=== PATIENT | male | born 2000 | race Caucasian/White ===

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

== ENCOUNTER 2020-03-16 14:24 | Emergency (ER) | payer OTHER ==
--- NOTE | 2020-03-16 14:28 | NUR ---
NO ANSWER FOR TRIAGE AT THIS TIME; PATIENT NOT IN THE LOBBY, RESTROM, OR OUTSIDE.
--- NOTE | 2020-03-16 14:38 | NUR ---
SECOND CALL, NO ANSWER FOR TRIAGE. PATIENT NOT FOUND IN LOBBY, RESTROOM, OR OUTSIDE
--- NOTE | 2020-03-16 14:45 | NUR ---
THIRD CALL - NO ANSWER FOR TRIAGE. PATIENT NOT FOUND IN LOBBY, OUTSIDE, OR IN RESTROOM
== END 2020-03-16 14:28 | disposition left against medical advice (07) ==
LOC: ER 14:24
DX: M54.9 Dorsalgia, unspecified (principal)

== ENCOUNTER 2020-05-16 04:52 | Emergency (ER) | payer SELFPAY ==
[~2020-05-16] VITALS: Ht 182.9 cm; Wt 77.1 kg
--- NOTE | 2020-05-16 05:22 | Emergency Department Note ---
History of Present Illnes History of Present Illness Chief Complaint: Headache History of Present Illness This is a 20 year old male PRESENTS TO THE ER C/O FRONTAL HEADACHE ONSET LAST NIGHT AROUND 2200; PT STATES HE WENT TO SLEEP AND WOKE UP WITH WORSENING HEADACHE; PT ALSO REPORTS RUNNY NOSE ONSET YESTERDAY. STATE PAIN IS WORSE WHEN HE BENDS OVER . Historian: Patient Arrival Mode: Car Onset (how long ago): day(s) (1) Location: HEAD Quality: HEADACHE, CONGESTION, RUNNY NOSE Radiation: Reports non-radiation Severity: moderate Onset quality: gradual Duration (how long): day(s) (1) Timing of current episode: constant Progression: worsening Context: Denies recent illness, Denies recent surgery Relieving factors: none Exacerbating factors: other (BENDING OVER) Associated symptoms: Reports denies other symptoms Treatments prior to arrival: NSAID, antipyretic Past Medical/Family History Physician Review I have reviewed the patient's past medical and family history. Any updates have been documented here. Past Medical History Recent Fever: No Clinical Suspicion of Infectio: No New/Unexplained Change in Ment: No Past Medical History: None Other Medical History: SEASONAL ALLERGIES Past Surgical History: None Other Surgery: EAR TUBES Social History Smoking Cessation: Current every day smoker Alcohol Use: Occasional Any Illegal Drug Use: Yes (MARIJAUNA) Physically hurt or threatened: No Family History Family history of heart diseas: No Other Last Tetanus: UTD Review of Systems Review of Systems Constitutional: Reports no symptoms EENTM: Reports no symptoms Cardiovascular: Reports no symptoms Respiratory: Reports no symptoms Gastrointestinal: Reports no symptoms Genitourinary: Reports no symptoms Musculoskeletal: Reports no symptoms Integumentary: Reports no symptoms Neurological: Reports as per HPI Psychological: Reports no symptoms Endocrine: Reports no symptoms Hematological/Lymphatic: Reports no symptoms Physical Exam Related Data Allergies: Coded Allergies: morphine (Verified Allergy, Intermediate, 07/29/19) Triage Vital Signs Vital Signs Date Time Temp Pulse Resp B/P (MAP) Pulse Ox O2 Delivery O2 Flow Rate FiO2 05/16/20 05:11 97.7 56 18 143/89 100 Room Air Vital signs reviewed: Yes Physical Exam CONSTITUTIONAL Constitutional: Present well-developed, Present well-nourished HENT HENT: Present normocephalic, Present atraumatic, Present oropharynx clear/moist, Present nasal discharge (MODERATE), Present nasal congestion (SWOLLEN NASAL TURBINATES), Present other (TENDERNESS OVER FRONTAL SINUSES ) HENT L/R: Present left ext ear normal, Present right ext ear normal EYES Eyes: Reports PERRL, Reports conjunctivae normal NECK Neck: Present ROM normal PULMONARY Pulmonary: Present effort normal, Present breath sounds normal CARDIOVASCULAR Cardiovascular: Present regular rhythm, Present heart sounds normal, Present capillary refill normal, Present normal rate GASTROINTESTINAL Abdominal: Present soft, Present nontender, Present bowel sounds normal GENITOURINARY Genitourinary: Present exam deferred SKIN Skin: Present warm, Present dry MUSCULOSKELETAL Musculoskeletal: Present ROM normal NEUROLOGICAL Neurological: Present alert, Present oriented x 3, Present no gross motor or sensory deficits PSYCHOLOGICAL Psychological: Present mood/affect normal, Present judgement normal Assessment & Plan Medical Decision Making MDM PT WITH FRONTAL HEADACHE WITH TENDERNESS OVER FRONTAL SINUSES. PT DIAGNOSED WITH SINUS HEADACHE. DISCHARGED WITH FOLLOWING PRESCRIPTIONS AUGMENT 875 ONE PO BID FOR 14 DAYS MEDROL DOSE PACK Assessment & Plan Final Impression: (1) Sinus headache (2) Sinusitis Depart Disposition: HOME, SELF-CARE Last Vital Signs Date Time Temp Pulse Resp B/P (MAP) Pulse Ox O2 Delivery O2 Flow Rate FiO2 05/16/20 05:11 97.7 56 18 143/89 100 Room Air SJ SKINNER MD May 16, 2020 05:22
== END 2020-05-16 05:20 | disposition home or self-care (01) ==
LOC: ER 05:20
DX: J32.9 Chronic sinusitis, unspecified (principal); R51 Headache; F17.210 Nicotine dependence, cigarettes, uncomplicated
CPT/HCPCS: 99282

== ENCOUNTER 2021-02-09 21:11 | Inpatient (IN) | payer OTHER ==
[~2021-02-09] VITALS: Ht 182.9 cm; Wt 88.0 kg
[2021-02-09] MEDS ORDERED: VANCOMYCIN 1GM/NS 250 ML 250 ML IV STA (21:23)
[2021-02-09] MEDS ORDERED: CEFEPIME 1 GM in SODIUM CHLORIDE 0.9% 50ML 50 ML IV STA (21:30)
[2021-02-09 21:38] LABS: BASOPHILS # (AUTO) 0.1 (0.0-0.1); BASOPHILS % 0.5 % (0.0-1.0); EOSINOPHILS # (AUTO) 0.7 (0.0-0.4); EOSINOPHILS % 5.6 % (0.0-6.0); HEMATOCRIT 36.3 % (38.2-49.6); HEMOGLOBIN 11.7 g/dL (14.0-18.0); LYMPHOCYTES # (AUTO) 2.9 (1.0-3.2); LYMPHOCYTES % 24.7 % (18.0-39.1); MEAN CORPUSCULAR HEMOGLOBIN 29.7 pg (28-32); MEAN CORPUSCULAR HGB CONC 32.2 g/dL (31-35); MEAN CORPUSCULAR VOLUME 92.1 fL (81-99); MONOCYTES # (AUTO) 1.1 (0.2-0.8); MONOCYTES % 9.6 % (4.4-11.3); NEUTROPHILS # (AUTO) 6.9 (2.1-6.9); PLATELET COUNT 362 x10e3/uL (140-360); RED BLOOD COUNT 3.94 x10e6/uL (4.3-5.7); RED CELL DISTRIBUTION WIDTH 13.2 % (11.7-14.4)
[2021-02-09 21:55] LABS: ALANINE AMINOTRANSFERASE 32 IU/L (0-55); ALBUMIN 3.7 g/dL (3.5-5.0); ALBUMIN/GLOBULIN RATIO 1.1 (0.8-2.0); ALKALINE PHOSPHATASE 94 IU/L (40-150); ANION GAP 14.1 mmol/L (8-16); BLOOD UREA NITROGEN 14 mg/dL (7-26); BUN/CREATININE RATIO 17 (6-25); CARBON DIOXIDE 29 mmol/L (22-29); CHLORIDE 103 mmol/L (98-107); CREATININE, SERUM 0.81 mg/dL (0.72-1.25); EST GLOMERULAR FILTRATION RATE > 60 ML/MIN (60-); GLUCOSE 101 mg/dL (74-118); POTASSIUM 4.1 mmol/L (3.5-5.1); SODIUM 142 mmol/L (136-145)
[2021-02-09] MEDS ORDERED: SODIUM CHLORIDE 0.9% 1000ML 1,000 ML IV ONE (22:00)
[2021-02-10] VITALS (9 sets, daily range): BP systolic 115–138; BP diastolic 65–76
[2021-02-10] MEDS ORDERED: ALPRAZOLAM2 MG PO (04:46)
[2021-02-10] MEDS ORDERED: PAROXETINE HCL10 MG PO (04:46)
[2021-02-10 05:02] LABS: AMPHETAMINES SCREEN,URINE NEGATIVE (NEGATIVE); BENZODIAZEPINES SCREEN,URINE POSITIVE (NEGATIVE); PHENCYCLIDINE SCREEN,URINE NEGATIVE (NEGATIVE)
[2021-02-10] MEDS ORDERED: CEFEPIME 1 GM in SODIUM CHLORIDE 0.9% 50ML 50 ML IV SCH (08:00)
[2021-02-10] MEDS: NICOTINE 21 MG/EA PATCH TOP SCH (08:32)
[2021-02-10] MEDS: PIPERACILLIN/TAZOBACTAM 3.375 GM in SODIUM CHLORIDE 0.9% 50ML 50 ML IV SCH ×3 (09:00→22:58)
[2021-02-10] MEDS ORDERED: PIPERACILLIN/TAZOBACTAM 3.375 GM VIAL ONE (09:21)
[2021-02-10] MEDS: VANCOMYCIN 1GM/NS 250 ML 250 ML IV SCH ×2 (10:33→22:30)
[2021-02-10 11:25] LABS: BASOPHILS # (AUTO) 0.1 (0.0-0.1); BASOPHILS % 0.4 % (0.0-1.0); EOSINOPHILS # (AUTO) 0.5 (0.0-0.4); EOSINOPHILS % 4.1 % (0.0-6.0); HEMATOCRIT 32.4 % (38.2-49.6); HEMOGLOBIN 10.7 g/dL (14.0-18.0); LYMPHOCYTES % 17.4 % (18.0-39.1); MEAN CORPUSCULAR HEMOGLOBIN 29.8 pg (28-32); MEAN CORPUSCULAR VOLUME 90.3 fL (81-99); MONOCYTES # (AUTO) 0.7 (0.2-0.8); MONOCYTES % 6.4 % (4.4-11.3); NEUTROPHILS # (AUTO) 8.1 (2.1-6.9); NEUTROPHILS % 71.2 % (38.7-80.0); PLATELET COUNT 319 x10e3/uL (140-360); RED BLOOD COUNT 3.59 x10e6/uL (4.3-5.7)
[2021-02-10] MEDS: MORPHINE SULFATE INJ 2 MG/ML SYR IV PRN ×3 (11:25→23:25)
[2021-02-10] MEDS ORDERED: ACETAMINOPHEN 325 MG TAB PO PRN (11:30)
[2021-02-10] MEDS ORDERED: ONDANSETRON HCL INJ 2MG/ML 2ML 2 MG/ML VIAL IV PRN (11:30)
[2021-02-10 11:53] LABS: ALANINE AMINOTRANSFERASE 33 IU/L (0-55); ALBUMIN 3.2 g/dL (3.5-5.0); ALKALINE PHOSPHATASE 86 IU/L (40-150); ANION GAP 12.8 mmol/L (8-16); BLOOD UREA NITROGEN 10 mg/dL (7-26); BUN/CREATININE RATIO 13 (6-25); CALCIUM 8.6 mg/dL (8.4-10.2); CARBON DIOXIDE 27 mmol/L (22-29); CHLORIDE 104 mmol/L (98-107); CREATININE, SERUM 0.75 mg/dL (0.72-1.25); EST GLOMERULAR FILTRATION RATE > 60 ML/MIN (60-); GLUCOSE 132 mg/dL (74-118); POTASSIUM 3.8 mmol/L (3.5-5.1); SODIUM 140 mmol/L (136-145)
[2021-02-10] MEDS ORDERED: SODIUM CHLORIDE 0.9% 100 ML ONE (22:44)
[2021-02-11] VITALS: BP 121/59
[2021-02-11] MEDS: PIPERACILLIN/TAZOBACTAM 3.375 GM in SODIUM CHLORIDE 0.9% 50ML 50 ML IV SCH ×2 (06:03→10:54)
[2021-02-11] MEDS: NICOTINE 21 MG/EA PATCH TOP SCH (06:39)
[2021-02-11] MEDS: MORPHINE SULFATE INJ 2 MG/ML SYR IV PRN ×2 (06:46→13:13)
[2021-02-11 07:50] VITALS: BP 135/69
[2021-02-11] MEDS ORDERED: SODIUM CHLORIDE 0.9% 250ML 250 ML ONE (08:24)
[2021-02-11] MEDS: VANCOMYCIN 1GM/NS 250 ML 250 ML IV SCH (08:35)
[2021-02-11 08:49] VITALS: BP 135/69
[2021-02-11] MEDS ORDERED: DIPHENHYDRAMINE HCL 25 MG CAP PO PRN (11:45)
[2021-02-11 11:52] VITALS: BP 137/81
[2021-02-11] MEDS ORDERED: doxycline PO (14:55)
== END 2021-02-11 16:44 | disposition home or self-care (01) | DRG 563 ==
LOC: ER 21:24 → ERHOLD 02-10 → MED/SURG2 02-10 00:31 → OBSVTOIN 02-11 13:48
PROVIDERS: ADMIT Internal Medicine; ATTEND Internal Medicine
DX: S82.002B Unspecified fracture of left patella, initial encounter for open fracture type I or II (principal); L03.116 Cellulitis of left lower limb; F11.20 Opioid dependence, uncomplicated; V29.9XXA Motorcycle rider (driver) (passenger) injured in unspecified traffic accident, initial encounter; B96.89 Other specified bacterial agents as the cause of diseases classified elsewhere; Z20.822 Contact with and (suspected) exposure to COVID-19; F17.210 Nicotine dependence, cigarettes, uncomplicated
CPT/HCPCS: 36415; 80053; 80307; 83605; 85025; 87040; 87071; 87186; 87205; 97139; 99284; G0378; J0692; J2270; J2543; J3370; J7030; J7050; U0002

== ENCOUNTER → 2021-02-15 | Outpatient (CLI) | payer OTHER ==
[~2021-02-15] MED LIST: ALPRAZOLAM2 MG PO; PAROXETINE HCL10 MG PO; doxycline PO
== END ==
LOC: WCC 15:50
PROVIDERS: ATTEND Internal Medicine Infectious Disease
DX: S81.002A Unspecified open wound, left knee, initial encounter (principal); Y92.415 Exit ramp or entrance ramp of street or highway as the place of occurrence of the external cause

== ENCOUNTER → 2021-02-22 | Outpatient (CLI) | payer OTHER | LOC: WCC 15:47 | PROVIDERS: ATTEND Internal Medicine Infectious Disease | DX: S81.002A Unspecified open wound, left knee, initial encounter (principal); Y92.415 Exit ramp or entrance ramp of street or highway as the place of occurrence of the external cause ==

== ENCOUNTER → 2021-03-01 | Outpatient (CLI) | payer OTHER | LOC: WCC 15:04 | PROVIDERS: ATTEND Internal Medicine Infectious Disease | DX: S81.002A Unspecified open wound, left knee, initial encounter (principal); Y92.415 Exit ramp or entrance ramp of street or highway as the place of occurrence of the external cause ==

== ENCOUNTER → 2021-03-08 | Outpatient (CLI) | payer OTHER | LOC: WCC 14:00 | PROVIDERS: ATTEND Internal Medicine Infectious Disease | DX: S81.002A Unspecified open wound, left knee, initial encounter (principal); Y92.415 Exit ramp or entrance ramp of street or highway as the place of occurrence of the external cause ==

== ENCOUNTER → 2021-03-15 | Outpatient (CLI) | payer OTHER ==
[~2021-03-15] MED LIST changes: +LIDOCAINE VISC 2% SOLN 15 ML UDC ONE
== END ==
LOC: WCC 15:25
PROVIDERS: ATTEND Internal Medicine Infectious Disease
DX: S81.002A Unspecified open wound, left knee, initial encounter (principal); Y92.415 Exit ramp or entrance ramp of street or highway as the place of occurrence of the external cause

== ENCOUNTER 2021-04-26 23:15 | Emergency (ER) | payer OTHER ==
[~2021-04-26] VITALS: Ht 182.9 cm; Wt 88.0 kg
[~2021-04-26 23:15] MED LIST changes: -LIDOCAINE VISC 2% SOLN 15 ML UDC ONE
[2021-04-26] MEDS ORDERED: CLINDAMYCIN HC150 MG PO (23:58)
[2021-04-27] MEDS ORDERED: PREDNISONE20 MG PO (00:24)
[2021-04-27] MEDS ORDERED: CLINDAMYCIN HC150 MG PO (00:24)
== END 2021-04-27 00:25 | disposition home or self-care (01) ==
LOC: ER 04-27 00:13
DX: Z48.00 Encounter for change or removal of nonsurgical wound dressing (principal); F17.210 Nicotine dependence, cigarettes, uncomplicated
CPT/HCPCS: 99282

== ENCOUNTER 2021-05-01 12:56 | Emergency (ER) | payer OTHER ==
[~2021-05-01] VITALS: Ht 182.9 cm; Wt 88.0 kg
[~2021-05-01 12:56] MED LIST changes: +CLINDAMYCIN HC150 MG PO; +PREDNISONE20 MG PO
[2021-05-01] MEDS ORDERED: HYDROCODON-ACE1 EAC9 (13:20)
[2021-05-01] MEDS ORDERED: TIZANIDINE HCL4 MG (13:20)
[2021-05-01 14:16] LABS: BASOPHILS # (AUTO) 0.1 (0.0-0.1); BASOPHILS % 0.6 % (0.0-1.0); EOSINOPHILS # (AUTO) 0.4 (0.0-0.4); EOSINOPHILS % 5.2 % (0.0-6.0); HEMATOCRIT 36.3 % (38.2-49.6); HEMOGLOBIN 11.7 g/dL (14.0-18.0); LYMPHOCYTES # (AUTO) 2.3 (1.0-3.2); LYMPHOCYTES % 27.8 % (18.0-39.1); MEAN CORPUSCULAR HEMOGLOBIN 29.2 pg (28-32); MEAN CORPUSCULAR HGB CONC 32.2 g/dL (31-35); MEAN CORPUSCULAR VOLUME 90.5 fL (81-99); MONOCYTES # (AUTO) 0.8 (0.2-0.8); MONOCYTES % 9.3 % (4.4-11.3); NEUTROPHILS # (AUTO) 4.8 (2.1-6.9); NEUTROPHILS % 56.6 % (38.7-80.0); PLATELET COUNT 233 x10e3/uL (140-360); RED BLOOD COUNT 4.01 x10e6/uL (4.3-5.7); RED CELL DISTRIBUTION WIDTH 13.8 % (11.7-14.4)
[2021-05-01 14:26] LABS: AMPHETAMINES SCREEN,URINE NEGATIVE (NEGATIVE); BENZODIAZEPINES SCREEN,URINE POSITIVE (NEGATIVE); PHENCYCLIDINE SCREEN,URINE NEGATIVE (NEGATIVE)
[2021-05-01 14:27] LABS: CLARITY,URINE CLEAR (CLEAR); COLOR,URINE YELLOW (YELLOW); KETONES,URINE NEGATIVE (NEGATIVE); LEUKOCYTE ESTERASE ,URINE NEGATIVE (NEGATIVE); NITRITE,URINE NEGATIVE (NEGATIVE); PROTEIN,URINE DIPSTICK NEGATIVE (NEGATIVE); URINE UROBILINOGEN 0.2 mg/dL (0.2 - 1)
[2021-05-01 14:31] LABS: ALBUMIN 3.6 g/dL (3.5-5.0); ALBUMIN/GLOBULIN RATIO 1.2 (0.8-2.0); ANION GAP 11.6 mmol/L (8-16); CALCIUM 8.7 mg/dL (8.4-10.2); CREATININE, SERUM 0.87 mg/dL (0.72-1.25); MAGNESIUM 1.8 MG/DL (1.3-2.1); POTASSIUM 4.6 mmol/L (3.5-5.1)
[2021-05-01 14:34] LABS: SALICYLATE < 5.0 mg/dL (0-30)
[2021-05-01 15:15] LABS: AMORPHOUS SEDIMENT,URINE MODERATE (FEW); BACTERIA,URINE FEW /HPF
[2021-05-01 17:37] VITALS: BP 114/73
== END 2021-05-01 17:39 | disposition home or self-care (01) ==
LOC: ER 13:37
DX: R60.9 Edema, unspecified (principal); M79.89 Other specified soft tissue disorders; F17.210 Nicotine dependence, cigarettes, uncomplicated
CPT/HCPCS: 36415; 71045; 80053; 80307; 80320; 80329; 81001; 83735; 83880; 85025; 93970; 99284

== ENCOUNTER → 2021-05-03 | Outpatient (CLI) | payer OTHER ==
[~2021-05-03] MED LIST changes: +HYDROCODON-ACE1 EAC9; +LIDOCAINE VISC 2% SOLN 15 ML UDC ONE; +TIZANIDINE HCL4 MG
== END ==
LOC: WCC 10:27
PROVIDERS: ATTEND Internal Medicine Infectious Disease
DX: S81.002A Unspecified open wound, left knee, initial encounter (principal); R60.0 Localized edema; Y92.415 Exit ramp or entrance ramp of street or highway as the place of occurrence of the external cause

== ENCOUNTER → 2021-05-10 | Outpatient (CLI) | payer OTHER ==
[~2021-05-10] MED LIST changes: -LIDOCAINE VISC 2% SOLN 15 ML UDC ONE; +LIDOCAINE/PRILOCAINE 2.5-2.5% KIT ONE
== END ==
LOC: WCC 05-09 10:47
PROVIDERS: ATTEND Internal Medicine Infectious Disease
DX: S81.002A Unspecified open wound, left knee, initial encounter (principal); R60.0 Localized edema; Y92.415 Exit ramp or entrance ramp of street or highway as the place of occurrence of the external cause

== ENCOUNTER → 2021-05-24 | Outpatient (CLI) | payer OTHER ==
[~2021-05-24] MED LIST changes: -LIDOCAINE/PRILOCAINE 2.5-2.5% KIT ONE
== END ==
LOC: WCC 09:34
PROVIDERS: ATTEND Internal Medicine Infectious Disease
DX: S81.002A Unspecified open wound, left knee, initial encounter (principal); R60.0 Localized edema; Y92.415 Exit ramp or entrance ramp of street or highway as the place of occurrence of the external cause